=== PATIENT | male | born 1940 | race Caucasian/White ===

== ENCOUNTER 2018-05-05 05:36 | Emergency (ER) | payer OTHER ==
[~2018-05-05] VITALS: Ht 170.2 cm; Wt 73.5 kg
[~2018-05-05 05:36] MED LIST: DOXYCYCLINE MO100 MG PO; LISINOPRIL40 MG PO; OMEPRAZOLE20 MG PO
[2018-05-05 05:51] VITALS: BP 176/87
[2018-05-05] MEDS ORDERED: BENADRYL ALLERG25 M2 PO (06:04)
[2018-05-05] MEDS ORDERED: PEPCID20 M1 PO (06:04)
[2018-05-05] MEDS ORDERED: PREDNISONE20 M1 PO (06:04)
--- NOTE | 2018-05-05 06:04 | ED SKIN/ALLERGY COMPLAINT ---
History of Present Illness General Chief Complaint: Skin Rash/ Abcess Stated Complaint: SKINRASH? Source: patient, old records Exam Limitations: no limitations Vital Signs & Intake/Output Vital Signs & Intake/Output Vital Signs Date Time Temp Pulse Resp B/P B/P Pulse O2 O2 Flow FiO2 Mean Ox Delivery Rate 05/05 0551 98.6 98 18 176/87 98 Room Air Allergies Coded Allergies: MDX - Shellfish (Intermediate, ANAPHYLAXIS 04/12/14) Reconcile Medications Diphenhydramine HCl (Benadryl Allergy) 25 MG TABLET 1-2 TAB PO Q6P PRN poison althea DOXYCYCLINE MONOHYDRATE (Doxycycline Monohydrate) 100 MG CAPSULE 1 CAP PO BID CELLULITIS Famotidine (Pepcid) 20 MG TABLET 1 TAB PO BID poison althea Lisinopril 40 MG TABLET 1 TAB PO DAILY HEART (Reported) Omeprazole 20 MG CAPSULE.DR 1 TAB PO DAILY GERD (Reported) Prednisone 20 MG TABLET 1 TAB PO BID poison althea Triage Note: PT C/O RASH TO [facility]UE THAT STARTED 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 HAS BEEN USING CALAMINE LOTINO WITH NO RELIEF, REPORTS VERY ITCHY Triage Nurses Notes Reviewed? yes Onset: 3 days Duration: day(s):, constant, continues in ED Timing: recent history Severity: moderate Location: extremities (right arm) Possible Factors: exposure to allergen No Modifying Factors: none Associated Symptoms: change in skin texture, rash HPI: 3 days prior to admission patient developed itchy rash to right arm after clearing brush about his parents gravesite. He denies fever chills nausea vomiting diarrhea abdominal pain chest pain shortness breath headache dysuria bleeding. Past History Travel History Traveled to [place] past 21 day No Medical History Any Pertinent Medical History? 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 No Review of Systems Review of Systems Constitutional: Reports: no symptoms. EENTM: Reports: no symptoms. Respiratory: Reports: no symptoms. Cardiovascular: Reports: no symptoms. GI: Reports: no symptoms. Genitourinary: Reports: no symptoms. Musculoskeletal: Reports: no symptoms. Skin: Reports: see HPI, rash. Neurological/Psychological: Reports: no symptoms. Hematologic/Endocrine: Reports: no symptoms. Immunologic/Allergic: Reports: no symptoms. All Other Systems: Reviewed and Negative Physical Exam Physical Exam General Appearance: well developed/nourished, alert, awake, anxious, mild distress Head: atraumatic, normal appearance Eyes: Bilateral: normal appearance, PERRL, EOMI. Ears, Nose, Throat: normal pharynx, normal ENT inspection, hearing grossly normal Neck: normal inspection, supple, full range of motion, no midline tenderness Respiratory: normal breath sounds, chest non-tender, no respiratory distress, quiet respiration, lungs clear Cardiovascular: regular rate/rhythm, normal peripheral pulses, norml femoral pulses equa Peripheral Pulses: 4+ carotid (R), 4+ carotid (L) Gastrointestinal: normal bowel sounds, soft, non-tender, no organomegaly Back: normal inspection, normal range of motion Extremities: normal capillary refill, normal range of motion, no edema, no ligament instability Neurologic/Psych: no motor/sensory deficits, awake, alert, oriented x 3, normal gait, normal mood/affect, 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 Skin: intact, rash Skin Problem Location: upper extremities (dorsum of right arm) Skin Problem Character: linear, patchy, rash, rhus dermatitis Lymphatic: no anterior cervical mainor Progress Differential Diagnosis: abscess/cellulitis, allergic reaction, contact dermatitis, urticaria Plan of Care: Current Medications Sig/Gregg Start time Last Medication Dose Stop Time Status Admin Diphenhydramine HCl 25 MG ONCE ONE 05/05 615 AC (Benadryl) 05/05 616 Famotidine 20 MG ONCE ONE 05/05 615 AC (Pepcid) 05/05 616 Prednisone 60 MG ONCE ONE 05/05 615 AC 05/05 616 Departure Departure Time of Disposition: 601 Disposition: HOME OR SELF CARE Condition: Stable Clinical Impression Primary Impression: Poison althea dermatitis Referrals: Debbi PINEDA,Ed Benoit (PCP/Family) Departure Forms: Customer Survey General Discharge Information Prescriptions: Current Visit Scripts Prednisone 1 TAB PO BID #10 TAB Famotidine (Pepcid) 1 TAB PO BID #10 TAB Diphenhydramine HCl (Benadryl Allergy) 1-2 TAB PO Q6P PRN poison althea #30 TAB Ref 1
== END 2018-05-05 06:15 ==
LOC: ERH 05:36
DX: L23.7 Allergic contact dermatitis due to plants, except food (principal)